=== PATIENT | female | born 1960 | race Caucasian/White ===

== ENCOUNTER 2017-01-24 09:37 | Emergency (ER) | payer OTHER ==
[~2017-01-24] VITALS: Ht 172.7 cm; Wt 139.0 kg
[~2017-01-24 09:37] MED LIST: CETI10CA; DIAZ5TAB PO; LISI-167; SPIR25TA3
[2017-01-24] MEDS ORDERED: HYDROmorphone 1 MG/ML, 1ML ONE ×2 (10:46→11:42)
[2017-01-24] MEDS ORDERED: ONDANSETRON 2MG/ML, 2ML ONE (10:46)
[2017-01-24] MEDS: HYDROmorphone 1 MG/ML, 1ML IVPush PRN ×2 (10:58→11:45)
[2017-01-24] MEDS ORDERED: ONDANSETRON 2MG/ML, 2ML IVPush ONE (11:00)
[2017-01-24] MEDS ORDERED: ONDANSETRON ODT 4 MG PO ONE (11:00)
[2017-01-24 11:25] LABS: ASPARTATE AMINO TRANSFERASE 15 U/L (15-37); BLOOD UREA NITROGEN 20 mg/dL (7-18)
[2017-01-24] MEDS ORDERED: OMNIPAQUE 350 MG/ML, 150 ML BOTTLE ONE (12:31)
[2017-01-24] MEDS ORDERED: CEFTRIAXONE PMX 1GM/50ML 50 ML IV ONE (13:00)
[2017-01-24] MEDS ORDERED: CEFTRIAXONE PMX 1GM/50ML 50 ML ONE (13:14)
[2017-01-24 14:02] VITALS: BP 104/51
== END 2017-01-24 14:04 | disposition home or self-care (01) ==
LOC: ED 11:10
DX: N10 Acute pyelonephritis (principal); R10.31 Right lower quadrant pain; I10 Essential (primary) hypertension; Z90.49 Acquired absence of other specified parts of digestive tract; F17.210 Nicotine dependence, cigarettes, uncomplicated
CPT/HCPCS: 36415; 74177; 80053; 81001; 85025; 87077; 87086; 96365; 96375; 96376; 99285; J0696; J1170; J2405; Q9967; 87186

== ENCOUNTER 2017-02-09 09:59 | Emergency (ER) | payer OTHER ==
[~2017-02-09] VITALS: Ht 172.7 cm; Wt 140.6 kg
[2017-02-09] MEDS ORDERED: SODIUM CHLORIDE 0.9% 1,000 ML IV ONE (11:55)
[2017-02-09] MEDS ORDERED: ONDANSETRON 2MG/ML, 2ML IVPush ONE (12:00)
[2017-02-09] MEDS ORDERED: SODIUM CHLORIDE FLUSH 10ML SYR IVF ONE (12:00)
[2017-02-09] MEDS ORDERED: HYDROmorphone 1 MG/ML, 1ML IVPush PRN (12:00)
[2017-02-09] MEDS ORDERED: ONDANSETRON 2MG/ML, 2ML ONE (12:04)
[2017-02-09] MEDS ORDERED: HYDROmorphone 1 MG/ML, 1ML ONE (12:04)
[2017-02-09 12:35] LABS: ASPARTATE AMINO TRANSFERASE 19 U/L (15-37); BLOOD UREA NITROGEN 13 mg/dL (7-18)
[2017-02-09 13:25] VITALS: BP 170/79
[2017-02-09] MEDS ORDERED: OMNIPAQUE 350 MG/ML, 100ML BOTTLE ONE (13:26)
== END 2017-02-09 14:40 | disposition home or self-care (01) ==
LOC: ED 14:15
DX: R10.31 Right lower quadrant pain (principal); I10 Essential (primary) hypertension
CPT/HCPCS: 36415; 74177; 80053; 81003; 83605; 83690; 85025; 96374; 96375; 99285; J1170; J2405; J7030; Q9967

== ENCOUNTER → 2017-04-25 | Outpatient (CLI) | payer OTHER ==
[~2017-04-25] MED LIST changes: +OMNIPAQUE 350 MG/ML, 150 ML BOTTLE ONE
== END | disposition home or self-care (01) ==
LOC: RAD 12:44
PROVIDERS: ATTEND Nurse Practitioner Family
DX: N12 Tubulo-interstitial nephritis, not specified as acute or chronic (principal); N28.89 Other specified disorders of kidney and ureter; M47.896 Other spondylosis, lumbar region; D35.02 Benign neoplasm of left adrenal gland; N32.89 Other specified disorders of bladder
CPT/HCPCS: 36415; 74178; 82565; Q9967

== ENCOUNTER 2017-05-02 08:22 | Emergency (ER) | payer OTHER ==
[~2017-05-02] VITALS: Ht 172.7 cm; Wt 139.3 kg
[~2017-05-02 08:22] MED LIST changes: -OMNIPAQUE 350 MG/ML, 150 ML BOTTLE ONE
[2017-05-02 08:24] VITALS: BP 156/87
[2017-05-02] MEDS ORDERED: MIDAZOLAM 1 MG/ML, 5ML ONE (08:28)
[2017-05-02] MEDS ORDERED: LORazepam 2 MG/ML, 1ML ONE (08:28)
[2017-05-02 09:04] LABS: HEMATOCRIT 39.8 % (34.6-47.8); HEMOGLOBIN 13.3 g/dL (11.7-16.4); WHITE BLOOD COUNT 8.7 x10^3/uL (3.4-10)
[2017-05-02 09:13] LABS: ASPARTATE AMINO TRANSFERASE 18 U/L (15-37); BLOOD UREA NITROGEN 14 mg/dL (7-18)
== END 2017-05-02 10:40 | disposition home or self-care (01) ==
LOC: ED 09:57
DX: K29.00 Acute gastritis without bleeding (principal); I10 Essential (primary) hypertension; G43.909 Migraine, unspecified, not intractable, without status migrainosus; F12.10 Cannabis abuse, uncomplicated; Z90.49 Acquired absence of other specified parts of digestive tract
CPT/HCPCS: 36415; 71010; 80053; 81003; 83690; 85025; 86677; 99285